=== PATIENT | female | born 1985 | race African-American/Black ===

== ENCOUNTER 2022-10-14 09:13 | Emergency (ER) | payer MEDICAID ==
[~2022-10-14] VITALS: Ht 167.6 cm; Wt 54.4 kg
[2022-10-14 09:25] VITALS: BP_SYST 158
--- NOTE | 2022-10-14 09:40 | NUR ---
Patient triaged and placed in waiting room. VSS and patient appears in no acute distress at this time. Accompanied by self, awaiting available bed, and MD notified of need for MSE.
--- NOTE | 2022-10-14 09:45 | NUR ---
Patient to ER bed 04 to gown for evaluation. Side rails up.
--- NOTE | 2022-10-14 09:48 | NUR ---
ER at bedside examining patient.
--- NOTE | 2022-10-14 09:54 | NUR ---
Pt noted to ambulate from ED lobby to bed 04 with steady gait, no difficulty. Pt presents to ED with initial report of back pain since this week, pt reports its chronic that radiates to both sides. During MSE with MD pt noted to be moving around with no restrictions and no difficulty. Pt reports back pain has "pulling" sensation when she sits down. Pt also reports to MD that she has a "ball" in her abdomen. Pt denies any dysuria or any recent injuries. Pt in no acute distress, breathing even and unlabored. Safety measures in place.
--- NOTE | 2022-10-14 10:48 | NUR ---
pt to xray via w/c
--- NOTE | 2022-10-14 11:06 | NUR ---
pt back from xray, no acute distress. breathing even and unlabored. safety measures in place, no changes noted.
[2022-10-14] MEDS ORDERED: IBUP-1969 PO (11:15)
[2022-10-14] MEDS ORDERED: METH-634 PO (11:15)
[2022-10-14 11:26] VITALS: BP_SYST 127
--- NOTE | 2022-10-14 11:27 | NUR ---
DISCHARGE INSTRUCTIONS REVIEWED WITH PT, PT VERBALIZED UNDERSTANDING AND DENIED ANY QUESTIONS
== END 2022-10-14 11:27 | disposition home or self-care (01) ==
LOC: SED 09:13
DX: S39.012A Strain of muscle, fascia and tendon of lower back, initial encounter (principal); Z88.8 Allergy status to other drugs, medicaments and biological substances; Z79.899 Other long term (current) drug therapy; X58.XXXA Exposure to other specified factors, initial encounter; Y93.89 Activity, other specified; Y92.89 Other specified places as the place of occurrence of the external cause; Y99.8 Other external cause status
CPT/HCPCS: 71045; 72100-TC; 93005; 99284

== ENCOUNTER 2023-05-20 10:24 | Emergency (ER) | payer MEDICAID ==
[~2023-05-20] VITALS: Ht 167.6 cm; Wt 57.2 kg
[~2023-05-20 10:24] MED LIST: IBUP-1969 PO; METH-634 PO
[2023-05-20 10:30] VITALS: BP_SYST 145; PULSE 57; RESP 18; TEMP 98.2; O2SAT 100
[2023-05-20 11:20] LABS: BILIRUBIN,URINE NEGATIVE (NEGATIVE); BLOOD, URINE NEGATIVE (NEGATIVE); CLARITY/URINE CLEAR (CLEAR); COLOR,URINE YELLOW (YELLOW); GLUCOSE,URINE NEGATIVE (NEGATIVE); KETONES,URINE NEGATIVE (NEGATIVE); LEUKOCYTE ESTERASE ,URINE TRACE (NEGATIVE); NITRITE, URINE NEGATIVE (NEGATIVE); PROTEIN URINE NEGATIVE (NEGATIVE)
[2023-05-20 11:48] LABS: BACTERIA,URINE RARE /HPF (None Seen); RBC,URINE 0-3 /HPF (0-3); YEAST,URINE Few /HPF (None Seen)
[2023-05-20 12:00] VITALS: BP_SYST 145; PULSE 57; RESP 18; TEMP 98.2; O2SAT 100
== END 2023-05-20 10:30 | disposition home or self-care (01) ==
LOC: SED 10:24
DX: S39.012A Strain of muscle, fascia and tendon of lower back, initial encounter (principal); Z88.8 Allergy status to other drugs, medicaments and biological substances; Z79.899 Other long term (current) drug therapy; X50.1XXA Overexertion from prolonged static or awkward postures, initial encounter; Y93.89 Activity, other specified; Y92.89 Other specified places as the place of occurrence of the external cause; Y99.8 Other external cause status
CPT/HCPCS: 72100-TC; 81000; 81025; 87086; 99284